=== PATIENT | male | born 1940 | race Caucasian/White ===

== ENCOUNTER 2019-04-23 16:16 | Inpatient (IN) ==
--- OUTSIDE RECORDS SUMMARY | 2019-04-23 16:19 | External Medical Summary | Continuity of Care Document ---
:1940 Author Name Clarence M.D. Address Unavailable Unavailable , Care Team Providers Name Role Phone Unavailable Unavailable Unavailable Brandon ROBERTO Unavailable Unavailable Unavailable Unavailable Unavailable Problems Arthritis (716.90) (M19.90) Tachycardia (785.0) (R00.0) Hypertension (401.9) (I10) Type 2 diabetes mellitus (250.00) (E11.9) Allergies and Adverse Reactions No Known Drug Allergies (Allergy) Medications Vitamin D3 1000 UNIT Oral Capsule; TAKE 1 CAPSULE Daily , M. D. Refills: 0 metFORMIN HCl - 1000 MG Oral Tablet; TAKE 1 TABLET TWICE KYM LY. , M.D. Quantity: 180 Refills: 3 Lisinopril 10 MG Oral Tablet; TAKE 1 TABLET DAILY. , M.D. Quantity: 90 Refills: 0 Arthritis Pain Reliever 650 MG Oral Tabl et Extended Release; TAKE 1 TABLET Daily PRN pain , M.D. Refills: 0 Atorvastatin Calcium 10 MG Oral Tablet , M.D. Refills: 0 Aspirin 81 MG TABS; TAKE 1 TABLET DAILY. , M.D. Refills: 0 Sotalol HCl - 80 MG Oral Tablet; TAKE 1 TABLET TWICE DAILY. , M.D. Refills: 0 Procedures Procedures not documented Immunizations Immunizations not documented Social History - Smoking Status Never smoker Plan of Treatment Planned Observations Planned Goals not documented Results No Known Results Results not documented
[2019-04-23] MEDS ORDERED: ONDANSETRON INJ 2 MG/ML 2 ML VIAL IV STA ×2 (16:28→17:29)
[2019-04-23] MEDS ORDERED: MoRPHine SULFATE 4 MG/ML 1 ML CARP\\VIAL IV STA ×2 (16:28→17:57)
[2019-04-23] MEDS ORDERED: SODIUM CHLORIDE 0.9% 1000ML 1,000 ML IV SCH (16:30)
[2019-04-23 17:07] LABS: Basophils # (auto) 0.02 K/uL (0-0.2); Basophils % (auto) 0.2 %; Eosinophils # (auto) 0.04 K/uL (0-0.5); Eosinophils % (auto) 0.4 %; Hematocrit (blood only) 45.4 % (42-52); Hemoglobin 15.5 g/dL (14.0-18.0); Immature Granulocytes # (auto) 0.02 K/uL (0.00-0.02); Immature Granulocytes % (auto) 0.2 %; Lymphocytes # (auto) 1.35 K/uL (1.2-3.4); Lymphocytes % (auto) 13.2 %; Mean Corpuscular Hemoglobin 32.5 pg (25-34); Mean Corpuscular Hgb Conc 34.1 g/dL (32-36); Mean Corpuscular Volume 95.2 fL (80-100); Mean Platelet Volume 10.8 fL (7.4-10.4); Monocytes # (auto) 0.31 K/uL (0.11-0.59); Neutrophils # (auto) 8.52 K/uL (1.4-6.5); Platelet Count 106 K/uL (130-400); RDW Coefficient of Variation 13.9 % (11.5-14.5); RDW Standard Deviation 48.5 fL (36.4-46.3); Red Blood Count 4.77 M/uL (4.7-6.1); White Blood Count 10.26 K/uL (4.8-10.8)
[2019-04-23 17:31] LABS: Albumin Level 3.8 gm/dl (3.4-5.0); BUN Creatinine Ratio 18.5 (10-20); Calcium 8.9 mg/dl (8.5-10.1); Creatinine Clr Calc Pharmacy 44.1 ml/min; Est GFR (African American) 48.2; Est GFR (Non-African American) 41.6; Potassium 4.6 mmol/L (3.5-5.1)
[2019-04-23 17:34] LABS: Albumin Globulin Ratio 1.4 (0.9-2); Globulin 2.8 gm/dl (2.5-4.0); Total Protein 6.6 gm/dl (6.4-8.2)
[2019-04-23] MEDS ORDERED: IOVERSOL 100ml IV PRN (17:54)
--- NOTE | 2019-04-23 18:15 | CT Scan Report ---
ABDOMEN AND PELVIS CT WITH IV CONTRAST CT DOSE: 878.29 mGy.cm HISTORY: periumbilical abd pain TECHNIQUE: Multiaxial CT images of the abdomen and pelvis were performed following the use of intrave nous contrast. A dose lowering technique was utilized adhering to the principles of ALARA. COMPARISON STUDY: None. FINDINGS: Groundglass densities at the lung bases posteriorly favor mild dependent change. No pneumop eritoneum. No pneumatosis. Sclerosis at the femoral heads. This is nonspecific but could be due to de generative change or early avascular necrosis. No femoral head collapse. No acute fractures. A few sc attered punctate calcifications within the pancreas. There is mild to moderate peripancreatic inflamm atory change and fluid. Findings are consistent with acute pancreatitis. No loculated fluid collectio ns identified at this time. The pancreas enhances normally. No significant pancreatic necrosis identi fied. The splenic artery and vein appear patent. The main portal vein is also patent. Normal caliber common bile duct. Cholecystectomy. The liver, spleen, adrenal glands are unremarkable. Bilateral antonella l hypodense lesions are noted. Dominant lesion within the left kidney measures 8.4 cm. Some of these are subcentimeter in size are technically too small to characterize. However, these statistically fav or cysts. No hydronephrosis. Focal aneurysmal dilatation of the celiac artery measuring up to 1.6 cm in diameter. Small fat-containing right inguinal hernia. No retroperitoneal lymphadenopathy. Normal c aliber abdominal aorta. No pelvic free fluid. The prostate gland is mildly enlarged. The bladder is u nremarkable. Colonic diverticulosis. No evidence for diverticulitis. No bowel wall thickening or obst ruction. Normal appendix. IMPRESSION: 1. Above findings consistent with acute pancreatitis. 2. Nonspecific sclerosis of the femoral head. This could be due to degenerative change or developing avascular necrosis. No femoral head collapse. 3. 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 4. Additional findings as described above. Electronically signed by: Janes Amaya M.D. 04/23/2019 6:13 PM
--- NOTE | 2019-04-23 18:44 | History & Physical Report ---
Date of Service April 23, 2019 Assessment & Plan (1) Acute pancreatitis: This is a 78yo M with a PMH of DM II, HTN, HLD, paroxysmal VT, GERD and other medical problems listed below who presents with abdominal pain since early afternoon and was found to have acute pancreatitis. -Developed abdominal pain today with associated nausea, vomiting and diarrhea -No previous history of pancreatitis. Status post cholecystectomy, no alcohol or tobacco use -Found to have acute pancreatitis on CT abdomen pelvis. Lipase 19,854 -LR @ 150 ml/hr, pain control, n.p.o. for now -Holding Victoza,atorvastatin, hctz as potential contributors -Fasting lipid panel in AM -Routine GI consult (2) Paroxysmal ventricular tachycardia: Controlled on sotalol, still having asymptomatic PVCs -[place] [facility] [place]Continue sotalol (3) Hypertension: Mildly elevated in setting of pain -Continue metoprolol, lisinopril -Holding HCTZ (4) Diabetes mellitus, type II: A1c of 7.6 in February 2019 -Hold home agents, including Victoza -SSI while in-patient -BSG Q6H while NPO (5) CKD (chronic kidney disease), stage III: Creatinine 1.56, upper limit of normal (baseline creatinine mid ones) -Holding hydrochlorothiazide -Monitor with daily BMP DVT Ppx: SQ heparin Code status: FULL PCP: [facility] Dispo: Admitted to med/surg tele. Plan to return home once medically stable Patient seen in collaboration with Dr. Judd. Please see addendum. History of Present Illness Chief Complaint: abd pain Primary Care Provider: Milton Pugh MD This is a 78yo M with a PMH of DM II, HTN, HLD, paroxysmal VT, GERD and other medical problems listed below who presents with abdominal pain since early afternoon. [place] normal today until 30 minutes after eating 4 spicy beef sticks and pepper mathew cheese. Describes pain as a constant, 10/10 sharp and non- radiating. Had associated nausea and vomiting x 3. Also had a few episodes of diarrhea. Denies fever chills, cough, chest pain, shortness of breath, dysuria or constipation. In ED, pain decreased to 2/10 after pain medication in ED. Has been taking Victoza for approximately 1 year. Only new medications are magnesium and B12. Does not drink alcohol or use tobacco. History of cholecystectomy. Found to have acute pancreatitis on CT abd/pelvis. Lipase 19, 854. Will admit for treatment of acute pancreatitis. Allergies Allergy/AdvReac Type Severity Reaction Status Date / Time No Known Allergies Allergy Verified 04/23/19 17:34 Home Medications Home Medications Medication Instructions Recorded Confirmed Type acetaminophen [Tylenol Extra 1,000 mg PO QID PRN 04/23/19 04/23/19 History Strength] allopurinol [Zyloprim] 300 mg PO QPM 04/23/19 04/23/19 History aspirin [Aspir-Low] 81 mg PO DAILY 04/23/19 04/23/19 History atorvastatin [Lipitor] 10 mg PO QPM 04/23/19 04/23/19 History cholecalciferol (vitamin D3) 1,000 unit PO DAILY 04/23/19 04/23/19 History [Vitamin D3] cyanocobalamin (vitamin B-12) 1,000 mcg PO DAILY 04/23/19 04/23/19 History [Vitamin B-12] fluticasone propionate [Flonase 2 spray INTRANASAL DAILY PRN 04/23/19 04/23/19 History Allergy Relief] hydrochlorothiazide 12.5 mg PO DAILY 04/23/19 04/23/19 History liraglutide [Victoza 3-Emeterio] 1.2 mg SUBCUT DAILY 04/23/19 04/23/19 History lisinopril 20 mg PO DAILY 04/23/19 04/23/19 History magnesium oxide 400 mg PO DAILY 04/23/19 04/23/19 History metformin [Glucophage] 500 mg PO BIDM 04/23/19 04/23/19 History metoprolol succinate [Toprol XL] 25 mg PO DAILY 04/23/19 04/23/19 History sotalol [Betapace] 80 mg PO BID 04/23/19 04/23/19 History Past Med/Surg History Medical History CKD (chronic kidney disease), stage III (Chronic) Diabetes mellitus, type II (Chronic) Paroxysmal ventricular tachycardia (Chronic) HLD (hyperlipidemia) (Chronic) Surgical History History of cholecystectomy (Chronic) History of knee surgery (Chronic) Family History Other Abdominal aneurysm Social History Current Living Situation: Spouse Feels Safe at Home: Yes Smoking Status: Never smoker Hx Alcohol Use: No Hx Substance Use: No Review of Systems Review of Systems: At least ten systems reviewed and negative except as noted in the HPI. Physical Exam Physical Exam: General Appearance: WD/WN, vitals as above, NAD, sitting up in bed, pleasant, conversing easily Head: normocephalic, atraumatic Eyes: normal inspection, PERRL, conjunctivae normal, anicteric sclerae ENT: external ear and nose normal, oropharynx normal Neck: trachea midline, no thyromegaly normal visual inspection Respiratory: Decreased breath sounds, no wheeze, rales, rhonchi. Normal insp/exp effort, no accessory muscle use Cardiovascular: regular rate, rhythm, no murmur, normal peripheral pulses. Vessels: no JVD or carotid bruit Chest: normal inspection of chest Abdomen/GI: normal bowel sounds, soft, TTP in RUQ, mid-epigastrium, voluntarily guarding, no hepatosplenomegaly Extremities/Musculoskelatal: no cyanosis or clubbing, extremities motor strength 5/5 Neurologic: PERRL, EOMI, accommodation nl, no face palsy, no dysarthria CN's II-XI intact bilaterally and moves all extremities Psychiatric: A+Ox3, euthymic affect Skin: no rashes, normal color, warm/dry Results & Data Vital Signs (Past 12 Hours) Vital Signs Temp Pulse Resp BP Pulse Ox 04/23/19 18:08 98 04/23/19 18:07 141/100 H 98 04/23/19 17:34 16 160/98 H 99 04/23/19 16:39 95 04/23/19 16:38 71 13 97 04/23/19 16:22 36.8 C 17 136/84 98 04/23/19 16:21 65 13 136/84 97 Laboratory Results Short CBC 04/23/19 Range/Units 16:51 WBC 10.26 (4.8-10.8) K/uL Hgb 15.5 (14.0-18.0) g/dL Hct 45.4 (42-52) % Plt Count 106 L (130-400) K/uL BMP 04/23/19 16:51 Sodium 138 Potassium 4.6 Chloride 105 Carbon Dioxide 26 BUN 29 H Creatinine 1.56 H Glucose 180 H Calcium 8.9 Liver Function 04/23/19 Range/Units 16:51 Total Bilirubin 1.0 (0.2-1) mg/dl AST 22 (15-37) U/L ALT 31 (12-78) U/L Alkaline Phosphatase 75 (45-117) U/L Albumin 3.8 (3.4-5.0) gm/dl Diagnostic Findings CT abd/pelvis: IMPRESSION: 1. Above findings consistent with acute pancreatitis. 2. Nonspecific sclerosis of the femoral head. This could be due to degenerative change or developing avascular necrosis. No femoral head collapse. 3. 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 4. Additional findings as described above. Supervising Physician Co-Signing Physician Notes Patient is a 78-year-old male with history of diabetes, hypertension, paroxysmal ventricular tachycardia and other problems presents with history of abdominal pain, nausea and vomiting, transient diarrhea which started this morning. Abdominal pain started after eating spicy beef sticks and pepper [place] cheese. He denies any prior history of pancreatitis. He is on Victoza for diabetes which he has been taking since last 1 year. Patient is also on hydrochlorothiazide and Lipitor. Denies any recent medication changes other than being started on magnesium oxide and vitamin B12. He denies any alcohol use. Lipase levels are elevated at 19,858. CT abdomen is suggestive of acute pancreatitis. Also noted 1.6 cm celiac artery aneurysm. On exam patient is moderately built and nourished, no apparent distress, normocephalic atraumatic, lungs are clear to auscultation, S1-S2, no murmur, abdomen soft, tender upper quadrant predominantly right upper quadrant and epigastric region, voluntary guarding, bowel sounds are present, no pedal edema, grossly no focal neurological deficits. Patient is admitted for management of acute pancreatitis. We will keep him n.p.o., start on IV fluids, hold statin, hydrochlorothiazide and Victoza. Consulted GI for further input. Check lipid panel. I personally reviewed the record. Patient is interviewed and examined at bedside. Patient's care is coordinated with Kathia Lawson PA-C. Please refer to the documentation above for details of patient's presentation and for discussion of other issues.
[2019-04-23] MEDS ORDERED: FLUTICASONE PROPIONATE NA SPR 16 GM BTL NAE PRN (19:14)
[2019-04-23] MEDS ORDERED: GLUCOSE 40% GEL 15 GM TUBE PO PRN (19:27)
[2019-04-23] MEDS ORDERED: ONDANSETRON INJ 2 MG/ML 2 ML VIAL IV PRN (19:27)
[2019-04-23] MEDS ORDERED: MoRPHine SULFATE 2 MG/ML CARP IV PRN (19:27)
[2019-04-23] MEDS ORDERED: DEXTROSE 50% 50 ML SYRINGE IV PRN (19:27)
[2019-04-23] MEDS ORDERED: CARBOHYDRATES FOR HYPOGLYCEMIA PO PRN (19:27)
[2019-04-23] MEDS ORDERED: GLUCOSE 10 TABS/TUBE PO PRN (19:27)
[2019-04-23] MEDS ORDERED: GLUCAGON FOR INJ 1 MG VIAL SQ PRN (19:27)
--- NOTE | 2019-04-23 20:15 | Emergency Department Note ---
Entered by Rick Aguirre acting as a scribe for Hector Cha DO History of Present Illness General Chief complaint: Abdominal Pain Source: patient History of Present Illness Onset (ago): hour(s) (5.5) Location: abdomen (lower) Severity: moderate Pain Consistency: + constant Maximum Pain Intensity: 3 Associated symptoms: + denies other symptoms (pain and blood in his urine, cough, runny nose, and testicular pain), + cough, + nausea/vomiting and + other (diarrhea); no rash The patient is a 78 y/o male w/ PMHx of DMII, HLD, HTN who presents to the ED w/ CC of constant, lower, moderate abdominal pain beginning 5.5 hours ago. The patient states he was eating pepper cheese and bologna this morning when his symptoms began. He reports he has had this meal several times before, but this time he developed abdominal pain, became nauseous, vomited three times. The patient notes he also developed diarrhea. He states his diarrhea and nausea have resolved with the medication he was given by EMS. The patient reports his pain is still there, and he has a history of a cholecystectomy. He denies pain and blood in his urine, cough, runny nose, rashes, and testicular pain. EMS notes the patient was given 100mcg of Fentanyl and 4mg of Zofran in route. Home Medications Home Medications Medication Instructions Recorded Confirmed Type acetaminophen [Tylenol Extra 1,000 mg PO QID PRN 04/23/19 04/23/19 History Strength] allopurinol [Zyloprim] 300 mg PO QPM 04/23/19 04/23/19 History aspirin [Aspir-Low] 81 mg PO DAILY 04/23/19 04/23/19 History atorvastatin [Lipitor] 10 mg PO QPM 04/23/19 04/23/19 History cholecalciferol (vitamin D3) 1,000 unit PO DAILY 04/23/19 04/23/19 History [Vitamin D3] cyanocobalamin (vitamin B-12) 1,000 mcg PO DAILY 04/23/19 04/23/19 History [Vitamin B-12] fluticasone propionate [Flonase 2 spray INTRANASAL DAILY PRN 04/23/19 04/23/19 History Allergy Relief] hydrochlorothiazide 12.5 mg PO DAILY 04/23/19 04/23/19 History liraglutide [Victoza 3-Emeterio] 1.2 mg SUBCUT DAILY 04/23/19 04/23/19 History lisinopril 20 mg PO DAILY 04/23/19 04/23/19 History magnesium oxide 400 mg PO DAILY 04/23/19 04/23/19 History metformin [Glucophage] 500 mg PO BIDM 04/23/19 04/23/19 History metoprolol succinate [Toprol XL] 25 mg PO DAILY 04/23/19 04/23/19 History sotalol [Betapace] 80 mg PO BID 04/23/19 04/23/19 History Allergies Allergy/AdvReac Type Severity Reaction Status Date / Time No Known Allergies Allergy Verified 04/23/19 17:34 Past Med/Surg History Medical History CKD (chronic kidney disease), stage III (Chronic) Diabetes mellitus, type II (Chronic) Paroxysmal ventricular tachycardia (Chronic) HLD (hyperlipidemia) (Chronic) Surgical History History of cholecystectomy (Chronic) History of knee surgery (Chronic) Family History Other Abdominal aneurysm Social History Preferred Language: Bulgarian Communication Ability: Effective On Air Talent Required: No Beliefs That Will Affect Care: None Current Living Situation: Spouse Other Information That Helps Us Care for You: No Feels Safe at Home: Yes Safety Concerns: Feels Safe At This Time Smoking Status: Never smoker Do You Dip or Chew Tobacco: No ; Second Hand Exposure: Yes ; Hx Alcohol Use: No Hx Substance Use: No Review of Systems See HPI for pertinent positives & negatives. and A total of 10 systems reviewed and were otherwise negative Physical Exam Vital Signs Vital Signs - 24 hr 04/23/19 16:21 04/23/19 16:22 04/23/19 16:38 Temperature 36.8 C Temperature Source Oral Sepsis Recent Fever Within 48 Hours No Sepsis Action Taken by Nursing No Action Required Pulse Rate 65 71 Pulse Rate from SpO2 Sensor 60 67 Respiratory Rate 13 17 13 Blood Pressure 136/84 136/84 Blood Pressure Mean 101 101 Pulse Oximetry 97 98 97 Oxygen Delivery Method Room Air Room Air Room Air 04/23/19 16:39 04/23/19 17:34 04/23/19 18:07 Temperature Temperature Source Sepsis Recent Fever Within 48 Hours Sepsis Action Taken by Nursing Pulse Rate Pulse Rate from SpO2 Sensor 71 78 Respiratory Rate 16 Blood Pressure 160/98 H 141/100 H Blood Pressure Mean 118 113 Pulse Oximetry 95 99 98 Oxygen Delivery Method Room Air Room Air 04/23/19 18:08 04/23/19 18:30 04/23/19 18:31 Temperature Temperature Source Sepsis Recent Fever Within 48 Hours Sepsis Action Taken by Nursing Pulse Rate Pulse Rate from SpO2 Sensor 73 79 68 Respiratory Rate 18 Blood Pressure 112/73 Blood Pressure Mean 86 Pulse Oximetry 98 92 96 Oxygen Delivery Method Room Air Room Air GENERAL: Sitting up in bed. Disheveled holding his lower abdomen. EYE EXAM: normal conjunctiva OROPHARYNX: no exudate, no erythema, lips, buccal mucosa, and tongue normal and mucous membranes are moist NECK: supple, no nuchal rigidity, no adenopathy, non-tender LUNGS: Clear to auscultation. Normal chest wall mechanics HEART: no murmurs, S1 normal and S2 normal ABDOMEN: abdomen soft, tenderness around the umbilicus upon palpation, normo- active bowel sounds, no masses, no rebound or guarding. BACK: Back is symmetrical on inspection and there is no deformity, no midline tenderness, no CVA tenderness. SKIN: no rashes and no bruising UPPER EXTREMITIES: upper extremities are grossly normal. LOWER EXTREMITIES: No pitting edema. NEURO EXAM: Normal sensorium, cranial nerves II-XII grossly intact, normal speech, no gross weakness of arms, no gross weakness of legs. Course ED COURSE: Vital signs were reviewed and showed HTN. The patients medical record was reviewed The above diagnostic studies were performed and reviewed. ED treatments and interventions as stated above. 1620: The patient was evaluated in room C02B. A complete history and physical examination was performed. 1824: I reviewed the patient's case with Kathia Lawson PA-C, [facility] Hospitalist, Dr. Jean-Baptiste. She will evaluate the patient for further management. 1826: Upon reevaluation, the patient is resting.I discussed my findings with the patient and he understands and agrees with the treatment plan. Based on the patients age, coexisting illnesses, exam and lab findings the decision to treat as an inpatient was made. The patient remained stable while under my care. The patient will be evaluated for further management. Administered Medications Discontinued Medications Sodium Chloride (Nss 1000ml) 1,000 mls @ 999 mls/hr IV .Q1H1M KHOA Stop: 04/23/19 17:30 Last Infusion: 04/23/19 17:39 Dose: 0 mls/hr Documented by: [id number] Admin: 04/23/19 16:38 Dose: 999 mls/hr Documented by: [id number] Ioversol (Optiray 320 100ml) 93 ml IV ONCE PRN PRN Reason: Interaction Checking Stop: 04/27/19 17:53 Last Admin: 04/23/19 17:55 Dose: 93 ml Documented by: [id number] Morphine Sulfate (Morphine Sulfate) 4 mg IV NOW STA Stop: 04/23/19 16:29 Last Admin: 04/23/19 16:38 Dose: 4 mg Documented by: [id number] Morphine Sulfate (Morphine Sulfate) 4 mg IV NOW STA Stop: 04/23/19 17:58 Last Admin: 04/23/19 18:07 Dose: 4 mg Documented by: [id number] Ondansetron HCl (Zofran) 4 mg IV NOW STA Stop: 04/23/19 16:29 Last Admin: 04/23/19 16:39 Dose: 4 mg Documented by: [id number] Ondansetron HCl (Zofran) 4 mg IV NOW STA Stop: 04/23/19 17:30 Last Admin: 04/23/19 17:35 Dose: 4 mg Documented by: [id number] Medical Decision Making Differential Diagnosis Differential diagnoses includes but is not limited to gastritis, peptic ulcer disease, GERD, gallbladder disease, pancreatitis, small bowel obstruction, acute coronary syndrome, pericarditis, ischemic bowel, irritable bowel disease, irritable bowel syndrome, appendicitis, diverticulitis, malignancy, hernia, urinary tract infection, torsion, perforation, trauma, infectious. Medical Records Attestation: I reviewed the patient's medical records. Home Medications Current Medication List: was personally reviewed by me Laboratory Data Attestation: I reviewed the patient's lab results. Result diagrams: 04/23/19 16:51 04/23/19 16:51 Lab Results 04/23/19 04/23/19 Range/Units 16:51 16:51 WBC 10.26 (4.8-10.8) K/uL RBC 4.77 (4.7-6.1) M/uL Hgb 15.5 (14.0-18.0) g/dL Hct 45.4 (42-52) % MCV 95.2 (80-100) fL MCH 32.5 (25-34) pg MCHC 34.1 (32-36) g/dL RDW Std Deviation 48.5 H (36.4-46.3) fL RDW Coeff of Mona 13.9 (11.5-14.5) % Plt Count 106 L (130-400) K/uL MPV 10.8 H (7.4-10.4) fL Immature Gran % (Auto) 0.2 % Neut % (Auto) 83.0 % Lymph % (Auto) 13.2 % Pitkin % (Auto) 3.0 % Eos % (Auto) 0.4 % Baso % (Auto) 0.2 % Immature Gran # (Auto) 0.02 (0.00-0.02) K/uL Neut # (Auto) 8.52 H (1.4-6.5) K/uL Lymph # (Auto) 1.35 (1.2-3.4) K/uL Pitkin # (Auto) 0.31 (0.11-0.59) K/uL Eos # (Auto) 0.04 (0-0.5) K/uL Baso # (Auto) 0.02 (0-0.2) K/uL Sodium 138 (136-145) mmol/L Potassium 4.6 (3.5-5.1) mmol/L Chloride 105 (98-107) mmol/L Carbon Dioxide 26 (21-32) mmol/L Anion Gap 7.0 (3-11) BUN 29 H (7-18) mg/dl Creatinine 1.56 H (0.6-1.4) mg/dl Est Cr Clr Drug Dosing 44.1 ml/min Est GFR ( Amer) 48.2 Est GFR (Non-Af Amer) 41.6 BUN/Creatinine Ratio 18.5 (10-20) Glucose 180 H (70-99) mg/dl Calcium 8.9 (8.5-10.1) mg/dl Total Bilirubin 1.0 (0.2-1) mg/dl AST 22 (15-37) U/L ALT 31 (12-78) U/L Alkaline Phosphatase 75 (45-117) U/L Total Protein 6.6 (6.4-8.2) gm/dl Albumin 3.8 (3.4-5.0) gm/dl Globulin 2.8 (2.5-4.0) gm/dl Albumin/Globulin Ratio 1.4 (0.9-2) Lipase 45720 H (73-393) U/L Imaging Data Radiologist's Impression: Radiology results as stated below per my review and the radiologist's interpretation: ABDOMEN AND PELVIS CT WITH IV CONTRAST CT DOSE: 878.29 mGy.cm HISTORY: periumbilical abd pain TECHNIQUE: Multiaxial CT images of the abdomen and pelvis were performed following the use of intravenous contrast. A dose lowering technique was utilized adhering to the principles of ALARA. COMPARISON STUDY: None. FINDINGS: Groundglass densities at the lung bases posteriorly favor mild dependent change. No pneumoperitoneum. No pneumatosis. Sclerosis at the femoral heads. This is nonspecific but could be due to degenerative change or early avascular necrosis. No femoral head collapse. No acute fractures. A few scat tered punctate calcifications within the pancreas. There is mild to moderate peripancreatic inflammatory change and fluid. Findings are consistent with acute pancreatitis. No loculated fluid collections identified at this time. The pancreas enhances normally. No significant pancreatic necrosis identified. The splenic artery and vein appear patent. The main portal vein is also patent. Normal caliber common bile duct. Cholecystectomy. The liver, spleen, adrenal glands are unremarkable. Bilateral renal hypodense lesions are noted. Dominant lesion within the left kidney measures 8.4 cm. Some of these are subcentimeter in size are technically too small to characterize. However, these statistically favor cysts. No hydronephrosis. Focal aneurysmal dilatation of the celiac artery measuring up to 1.6 cm in diameter. Small fat-containing right inguinal hernia. No retroperitoneal lymphadenopathy. Normal caliber abdominal aorta. No pelvic free fluid. The prostate gland is mildly enlarged. The bladder is unremarkable. Colonic diverticulosis. No evidence for diverticulitis. No bowel wall thickening or obstruction. Normal appendix. IMPRESSION: 1. Above findings consistent with acute pancreatitis. 2. Nonspecific sclerosis of the femoral head. This could be due to degenerative change or developing avascular necrosis. No femoral head collapse. 3. 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 4. Additional findings as described above. Electronically signed by: Janes Amaya M.D. 04/23/2019 6:13 PM ECG Data Attestation: I personally reviewed and interpreted this ECG as follows: Indication: abdominal pain Rate (beats per minute): 67 Rhythm: sinus rhythm Findings: + 1st degree AV block, + PVC and + left axis deviation Blood Pressure Blood Pressure Findings: Elevated blood pressure Blood Pressure Disposition: further management by hospitalist PIYUSH Narrative Patient is a 78-year-old male who presents the ER for periumbilical abdominal pain which she describes as severe associate with nausea vomiting. He was given IV fentanyl prior to arrival. IV was established blood work was obtained showed no significant leukocytosis or anemia. BMP with a creatinine 1.56. LFTs bilirubin was unremarkable. Lipase was significantly elevated at 20,000. CT abdomen pelvis confirms acute pancreatitis. He was given IV fluids IV Zofran and IV narcotics. He has significant improvement of his symptoms. He was updated bedside as well as his family. He denies any alcohol abuse. Previous cholecystectomy. He was admitted to the hospital for acute pancreatitis. Impression & Plan Pancreatitis, Abdominal pain, Nausea & vomiting Discharge Plan Visit Data *Final* Discharge Date/Time: 04/23/19 19:05 Chief Complaint: Abdominal Pain ED Provider: Hector Cha Discharge Problem: Pancreatitis, Abdominal pain, Nausea & vomiting Patient Disposition: Admitted As Inpatient Discharge Instructions Interventions: ED Discharge Assessment Last Done: 04/23/19 19:05 The scribe's documentation has been prepared under my direction and personally reviewed by me in its entirety. I confirm that the note above accurately reflects all work, treatment, procedures, and medical decision making performed by me.
[2019-04-23] MEDS: LACTATED RINGER'S 1,000 ML IV SCH (20:32)
[2019-04-23] MEDS: FAMOTIDINE 20 MG in SYRINGE 3 ML IV SCH (20:33)
[2019-04-23] MEDS ORDERED: ALLOPURINOL 300 MG TAB PO SCH (21:00)
[2019-04-23] MEDS ORDERED: INSULIN ASPART 100 UNITS/ML 3 ML PEN SC SCH (21:00)
[2019-04-23] MEDS: SOTALOL HCL 80 MG TAB PO SCH (21:33)
[2019-04-23] MEDS: INSULIN ASPART 100 UNITS/ML 3 ML PEN SC SCH (21:37)
[2019-04-23] MEDS: HEPARIN SOD 5,000 UNIT/0.5 ML VIAL SQ SCH (21:38)
[2019-04-24] MEDS: MoRPHine SULFATE 2 MG/ML CARP IV PRN ×7 (01:38→23:54)
[2019-04-24] MEDS: INSULIN ASPART 100 UNITS/ML 3 ML PEN SC SCH ×4 (01:39→18:21)
[2019-04-24] MEDS: LACTATED RINGER'S 1,000 ML IV SCH ×4 (03:15→21:32)
[2019-04-24 05:11] LABS: Hematocrit (blood only) 48.2 % (42-52); Hemoglobin 16.5 g/dL (14.0-18.0); Mean Corpuscular Hemoglobin 32.6 pg (25-34); Mean Corpuscular Hgb Conc 34.2 g/dL (32-36); Mean Corpuscular Volume 95.3 fL (80-100); Mean Platelet Volume 10.7 fL (7.4-10.4); Platelet Count 104 K/uL (130-400); RDW Coefficient of Variation 14.2 % (11.5-14.5); RDW Standard Deviation 49.1 fL (36.4-46.3); Red Blood Count 5.06 M/uL (4.7-6.1); White Blood Count 13.84 K/uL (4.8-10.8)
[2019-04-24 05:28] LABS: Appearance Urine Clear (Clear); Bilirubin Urine Negative (Negative); Blood Urine Negative (Negative); Color Urine Yellow; Glucose Urine UA Negative (Negative); Ketones Urine Trace (Negative); Leukocyte Esterase Urine Negative (Negative); Nitrite Urine Negative (Negative); Protein Urine Negative (Negative); Specific Gravity Urine > 1.045 (1.000-1.030); Urobilinogen Urine Negative (Negative)
[2019-04-24 05:38] LABS: Albumin Level 3.6 gm/dl (3.4-5.0); BUN Creatinine Ratio 19.8 (10-20); Calcium 8.4 mg/dl (8.5-10.1); Est GFR (African American) 51.8; Est GFR (Non-African American) 44.7; Potassium 4.5 mmol/L (3.5-5.1)
[2019-04-24 05:41] LABS: Albumin Globulin Ratio 1.2 (0.9-2); Bilirubin,Total 1.3 mg/dl (0.2-1); Globulin 3.1 gm/dl (2.5-4.0); Total Protein 6.7 gm/dl (6.4-8.2)
[2019-04-24] MEDS: HEPARIN SOD 5,000 UNIT/0.5 ML VIAL SQ SCH (05:55)
[2019-04-24] MEDS: FAMOTIDINE 20 MG in SYRINGE 3 ML IV SCH ×2 (07:47→20:26)
[2019-04-24] MEDS: LISINOPRIL 20 MG TAB PO SCH (07:47)
[2019-04-24] MEDS: METOPROLOL SUCC 25MG EXT REL TAB PO SCH (07:47)
[2019-04-24] MEDS: ASPIRIN 81 MG ECTAB PO SCH (07:47)
[2019-04-24] MEDS: SOTALOL HCL 80 MG TAB PO SCH ×2 (07:47→20:29)
[2019-04-24] MEDS: CYANOCOBALAMIN 500 MCG TABLET (VITAMIN B-12) PO SCH (07:48)
--- NOTE | 2019-04-24 07:56 | Gastrointestinal Consultation ---
Date of Consultation April 24, 2019 Assessment & Plan (1) Acute pancreatitis: 1. Increase LR to 200 - 250/hr to affect a 2 point drop in Hb which will verify adequate hydration for tx of acute pancreatitis. 2. Water/chips po only for now. If continues to improve through the day, could a dd clear liquids po this evening or tomorrow morning, then advance diet slowly as tolerated to low fat diet. 3. Recommend stopping Victoza and managing DM with other type medication if possible. 4. Continue stopping hydrochlorothiazide and managing HTN with out medication. 5. EUS in [address] Disla. Order placed in [employer]. Our office will contact him to arrange. 6. At this time because normal LFTs and normal bile ducts on CT, no indication for ERCP or MRCP. 7. Continue to follow CBC, CMP, lipase daily. Present on Admission?: Yes Supervising Physician Co-Signing Physician Notes I saw and evaluated the patient. We are consulted for evaluation of acute pancreatitis. The patient notes that he had some sudden onset of pain after which time he presented to the emergency room. He was found to have lab evidence of pancreatitis with normal-appearing liver enzymes. Abdominal imaging was negative for evidence of choledocholithiasis. The patient reports that he did have a cholecystectomy performed over 20 years ago. The patient notes his medications include Victoza which was started within this year. Physical examination Mild distress Mild abdominal distention without rebound or peritoneal signs Impression: Patient presents with acute pancreatitis perhaps related to Victoza. At this point in time we would recommend continued IV hydration, pain management and discontinuation of Victoza. Recommendations Continue with IV hydration Clear liquid diet is okay as patient starting to feel better Monitor for evidence of ileus Outpatient upper endoscopy with endoscopic ultrasound in 6 to 8 weeks. Discontinue Victoza, management of diabetes per medicine service History of Present Illness Reason for Consultation: Acute Pancreatitis Requesting Physician: Dr. Mcdermott Attending Physician: Chente Mcdermott MD History of Present Illness Mr. Marcus Springer is a 78 yr old male pt of Dr. Srivastava with a hx of A-fib, CKD, DM-2, cholecystectomy, HTN, hyperlipidemia who presented to the ED yesterday for abdominal pain. GI is consulted for acute pancreatitis. He reports the sudden onset of upper abdomen pain beginning around 11AM, after eating bologna and cheese for breakfast, though he says that he is typically a healthy, low fat eater. Soon after the pain began, he also had nausea, vomiting and diarrhea. He has not had fever, chills, CP, SOB. He denies any hx of increased alcohol intake. His and daughter both verify that he does not drink and has never been a smoker. He is S/P distant cholecystectomy in the . He did start Victoza about a year ago and has been on hydrochlorothiazide for several years. He has never previously experienced pancreatitis or untreated similar pain. Because the pain persisted, he presented to the ED yesterday afternoon. On arrival, CT with acute uncomplicated pancreatitis, normal bile duct post cholecystectomy. Lipase = 19,854 ->7007 today. LFTs were normal and triglycerides were low at 62. Cr 1.5. Hb on arrival 15 ->16. He is seen and examined while resting in bed. He is awake, alert, oriented, able to carry a conversation. He reports that his pain persists but is about 50% improved. Nausea continues but no further vomiting. Allergies Allergy/AdvReac Type Severity Reaction Status Date / Time No Known Allergies Allergy Verified 04/23/19 17:34 Home Medications Home Medications Medication Instructions Recorded Confirmed Type acetaminophen [Tylenol Extra 1,000 mg PO QID PRN 04/23/19 04/23/19 History Strength] allopurinol [Zyloprim] 300 mg PO QPM 04/23/19 04/23/19 History aspirin [Aspir-Low] 81 mg PO DAILY 04/23/19 04/23/19 History atorvastatin [Lipitor] 10 mg PO QPM 04/23/19 04/23/19 History cholecalciferol (vitamin D3) 1,000 unit PO DAILY 04/23/19 04/23/19 History [Vitamin D3] cyanocobalamin (vitamin B-12) 1,000 mcg PO DAILY 04/23/19 04/23/19 History [Vitamin B-12] fluticasone propionate [Flonase 2 spray INTRANASAL DAILY PRN 04/23/19 04/23/19 History Allergy Relief] hydrochlorothiazide 12.5 mg PO DAILY 04/23/19 04/23/19 History liraglutide [Victoza 3-Emeterio] 1.2 mg SUBCUT DAILY 04/23/19 04/23/19 History lisinopril 20 mg PO DAILY 04/23/19 04/23/19 History magnesium oxide 400 mg PO DAILY 04/23/19 04/23/19 History metformin [Glucophage] 500 mg PO BIDM 04/23/19 04/23/19 History metoprolol succinate [Toprol XL] 25 mg PO DAILY 04/23/19 04/23/19 History sotalol [Betapace] 80 mg PO BID 04/23/19 04/23/19 History Patient History Medical History CKD (chronic kidney disease), stage III (Chronic) Diabetes mellitus, type II (Chronic) Paroxysmal ventricular tachycardia (Chronic) HLD (hyperlipidemia) (Chronic) Surgical History History of cholecystectomy (Chronic) History of knee surgery (Chronic) Family History Other Abdominal aneurysm Social History Preferred Language: Samoan Communication Ability: 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 Beliefs That Will Affect Care: None Current Living Situation: Spouse Other Information That Helps Us Care for You: No Feels Safe at Home: Yes Safety Concerns: Feels Safe At This Time Smoking Status: Never smoker Do You Dip or Chew Tobacco: No ; Second Hand Exposure: Yes ; Hx Alcohol Use: No Hx Substance Use: No Review of Systems Review of Systems: ROS: Gen: Denies weakness, fevers, weight loss Eyes: No eye redness, or pain, no recent vision changes Resp: No SOB, no cough Cardio: No palpitations/irregular beats, no chest pain GI: + abdominal pain, + nausea/vomiting : Denies pain on urination Skin: Denies jaundice, itching or new rashes Physical Exam Constitutional: WD/WN, vitals as above Eyes: PERRL, conjunctivae normal, anicteric sclerae ENMT: external ear and nose normal, oropharynx normal Neck: trachea midline, no thyromegaly Respiratory: normal respiratory effort, lungs clear to auscultation Cardiovascular: RRR, no murmur, no edema Gastrointestinal (Abdomen): Inspection/Auscultation: normal bowel sounds (slightly hypoactive, but present) Percussion/Palpation: + abdomen tender (epigastric area) and abdomen soft; no guarding and no abdominal mass Musculoskeletal: no cyanosis or clubbing, extremities motor strength 5/5 Skin: no rashes, warm and dry no jaundice Neurologic: PERRL, EOMI, accommodation nl, no face palsy, no dysarthria Psychiatric: A+Ox3, euthymic affect Lymphatic: no cervical or axillary lymphadenopathy Results & Data Vital Signs (Past 12 Hours) Vital Signs Temp Pulse Resp BP Pulse Ox 04/24/19 07:07 36.6 C 79 18 164/99 H 93 04/23/19 23:00 36.3 C L 73 19 162/97 H 95 04/23/19 21:30 141 H 160/102 H Laboratory Results WBC 13, Hb 16, Lipase [address] abd/pelvis with IV contrast: 1. Above findings consistent with acute pancreatitis. 2. Nonspecific sclerosis of the femoral head. This could be due to degenerative change or developing avascular necrosis. No femoral head collapse. 3. 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 4. Additional findings as described above. Medications Administered LR was running at 150/hr, increased to 200/hr.
[2019-04-24] MEDS ORDERED: NON-FORMULARY MEDICATION (Magnesium Oxide 400 MG) PO SCH (09:00)
[2019-04-24] MEDS ORDERED: CHOLECALCIFEROL 1,000 UNITS TAB PO SCH (09:00)
[2019-04-24] MEDS ORDERED: Nursing to Pharmacy Communication ONE (09:20)
[2019-04-24] MEDS ORDERED: METOCLOPRAMIDE HCL INJ 5 MG/ML 2 ML VIAL IV PRN (12:06)
--- NOTE | 2019-04-24 12:27 | Hospitalist Progress Note ---
Date of Service April 24, 2019 Assessment & Plan (1) Acute pancreatitis: This is a 78yo M with a PMH of DM II, HTN, HLD, paroxysmal VT, GERD and other medical problems listed below who presents with abdominal pain since early afternoon of 04/23/19 and was found to have acute pancreatitis. CT abdomen 04/23/19 "FINDINGS: Groundglass densities at the lung bases posteriorly favor mild dependent change. No pneumoperitoneum. No pneumatosis. Sclerosis at the femoral heads. This is nonspecific but could be due to degenerative change or early avascular necrosis. No femoral head collapse. No acute fractures. A few scattered punctate calcifications within the pancreas. There is mild to moderate peripancreatic inflammatory change and fluid. Findings are consistent with acute pancreatitis. No loculated fluid collections identified at this time. The pancreas enhances normally. No significant pancreatic necrosis identified. The splenic artery and vein appear patent. The main portal vein is also patent. Normal caliber common bile duct. Cholecystectomy. The liver, spleen, adrenal glands are unremarkable. Bilateral renal hypodense lesions are noted. Dominant lesion within the left kidney measures 8.4 cm. Some of these are subcentimeter in size are technically too small to characterize. However, these statistically favor cysts. No hydronephrosis. Focal aneurysmal dilatation of the celiac artery measuring up to 1.6 cm in diameter. Small fat-containing right inguinal hernia. No retroperitoneal lymphadenopathy. Normal caliber abdominal aorta. No pelvic free fluid. The prostate gland is mildly enlarged. The bladder is unremarkable. Colonic diverticulosis. No evidence for diverticulitis. No bowel wall thickening or obstruction. Normal appendix. IMPRESSION: 1. Above findings consistent with acute pancreatitis. 2. Nonspecific sclerosis of the femoral head. This could be due to degenerative change or developing avascular necrosis. No femoral head collapse. 3. 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 4. Additional findings as described above." -No previous history of pancreatitis. Status post cholecystectomy, no alcohol or tobacco use -Found to have acute pancreatitis on CT abdomen pelvis with elevated admission Lipase 19,854 -on IV fluids -Lipase downtrending -Avoid Victoza, HCTZ as potential contributors -Fasting lipid panel in AM shows very well controlled lipid profiles, hold atorvastatin at this time -as per GI: At this time because normal LFTs and normal bile ducts on CT, no indication for ERCP or MRCP. planning for EUS in [address] 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 -incidental CT scan finding; not the cause of current abdomen complaints given pancreatitis with elevated lipase -outpatient follow up and monitoring (2) Paroxysmal ventricular tachycardia: -continue sotalol (3) CKD (chronic kidney disease), stage III: Creatinine 1.56, upper limit of normal (baseline creatinine mid ones) -HCTZ held -Creatinine currently 1.47 -Monitor renal function (4) Hypertension: -Continue metoprolol, lisinopril -gastroenterology advise to avoid HCTZ because of pancreatitis -start amlodipine 10 mg daily (5) Diabetes mellitus, type II: Type 2 diabetes mellitus without residential use of insulin HbA1c of 7.6 in February 2019 -Hold home agents, including Victoza -gastroenterology advise to avoid Victoza because of pancreatitis -Sliding scale insulin while in-patient -check blood sugars every 8 hours while NPO DVT Ppx: SCDs for now to avoid abdominal discomfort from pharmacological injections of anticoagulants Code status: FULL PCP: Keaton [phone] Daughter Meme [phone] Subjective Patient laying in bed on medical sue. no acute distress. no vomiting. tenderness on palpation of abdomen. patient reported last bowel movement was yesterday. he is on IV fluids. he reports no problems with urination. no shortness of breath. no dizziness or lightheadedness. family at bedside with patient and we discussed pancreatitis management and incidental finding of celiac artery aneurysm Physical Exam Constitutional: comfortable Eyes: EOM intact bilaterally ENMT: external ear and nose normal, oropharynx normal Neck: normal visual inspection Respiratory: normal respiratory effort, lungs clear to auscultation Cardiovascular: Rate/Rhythm: regular rate and regular rhythm Gastrointestinal (Abdomen): truncal obesity, abdomen is tender to palpation, bowel sounds present Neurologic: PERRL, EOMI, accommodation nl, no face palsy, no dysarthria Psychiatric: A+Ox3, euthymic affect Results & Data Vital Signs (Past 12 Hours) Vital Signs Temp Pulse Resp BP Pulse Ox 04/24/19 07:07 36.6 C 79 18 164/99 H 93
[2019-04-24] MEDS ORDERED: AMLODIPINE BESYLATE 5 MG TAB PO ONE (12:30)
[2019-04-25] MEDS: INSULIN ASPART 100 UNITS/ML 3 ML PEN SC SCH ×5 (00:03→21:25)
[2019-04-25] MEDS: LACTATED RINGER'S 1,000 ML IV SCH ×4 (02:49→21:30)
[2019-04-25] MEDS: MoRPHine SULFATE 2 MG/ML CARP IV PRN (05:06)
[2019-04-25 05:33] LABS: Hemoglobin 16.5 g/dL (14.0-18.0); Mean Corpuscular Hgb Conc 33.7 g/dL (32-36); RDW Coefficient of Variation 14.5 % (11.5-14.5); RDW Standard Deviation 49.9 fL (36.4-46.3); Red Blood Count 5.16 M/uL (4.7-6.1); White Blood Count 17.62 K/uL (4.8-10.8)
[2019-04-25 05:53] LABS: Albumin Level 2.9 gm/dl (3.4-5.0); BUN Creatinine Ratio 20.2 (10-20); Creatinine Clr Calc Pharmacy 46.4 ml/min; Potassium 4.4 mmol/L (3.5-5.1)
[2019-04-25 05:57] LABS: Globulin 2.9 gm/dl (2.5-4.0); Total Protein 5.8 gm/dl (6.4-8.2)
[2019-04-25 06:06] LABS: Mean Platelet Volume 11.4 fL (7.4-10.4); Platelet Count 86 K/uL (130-400)
[2019-04-25] MEDS ORDERED: MAGNESIUM HYDROXIDE SUSP 30 ML UDC PO ONE (07:39)
--- NOTE | 2019-04-25 07:39 | Hospitalist Progress Note ---
Date of Service April 25, 2019 Assessment & Plan (1) Acute pancreatitis: This is a 78yo M with a PMH of DM II, HTN, HLD, paroxysmal VT, GERD and other medical problems listed below who presents with abdominal pain since early afternoon of 04/23/19 and was found to have acute pancreatitis. CT abdomen 04/23/19 "FINDINGS: Groundglass densities at the lung bases posteriorly favor mild dependent change. No pneumoperitoneum. No pneumatosis. Sclerosis at the femoral heads. This is nonspecific but could be due to degenerative change or early avascular necrosis. No femoral head collapse. No acute fractures. A few scattered punctate calcifications within the pancreas. There is mild to moderate peripancreatic inflammatory change and fluid. Findings are consistent with acute pancreatitis. No loculated fluid collections identified at this time. The pancreas enhances normally. No significant pancreatic necrosis identified. The splenic artery and vein appear patent. The main portal vein is also patent. Normal caliber common bile duct. Cholecystectomy. The liver, spleen, adrenal glands are unremarkable. Bilateral renal hypodense lesions are noted. Dominant lesion within the left kidney measures 8.4 cm. Some of these are subcentimeter in size are technically too small to characterize. However, these statistically favor cysts. No hydronephrosis. Focal aneurysmal dilatation of the celiac artery measuring up to 1.6 cm in diameter. Small fat-containing right inguinal hernia. No retroperitoneal lymphadenopathy. Normal caliber abdominal aorta. No pelvic free fluid. The prostate gland is mildly enlarged. The bladder is unremarkable. Colonic diverticulosis. No evidence for diverticulitis. No bowel wall thickening or obstruction. Normal appendix. IMPRESSION: 1. Above findings consistent with acute pancreatitis. 2. Nonspecific sclerosis of the femoral head. This could be due to degenerative change or developing avascular necrosis. No femoral head collapse. 3. 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 4. Additional findings as described above." -No previous history of pancreatitis. Status post cholecystectomy, no alcohol or tobacco use -Found to have acute pancreatitis on CT abdomen pelvis with elevated admission Lipase 19,854 -on IV fluids -Lipase downtrending to 7007 to 3212 -Avoid Victoza, HCTZ as potential contributors -Fasting lipid panel in AM shows very well controlled lipid profiles, hold atorvastatin at this time -as per GI 04/25/19: At this time because normal LFTs and normal bile ducts on CT, no indication for ERCP or MRCP. planning for EUS in [address] 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 -incidental CT scan finding; not the cause of current abdomen complaints given pancreatitis with elevated lipase -outpatient follow up and monitoring Abdominal pain -from pancreatitis -pain control medications include prn narcotic for moderate to severe pain -bowel regimen to prevent constipation or to prevent ileus (2) Paroxysmal ventricular tachycardia: -continue sotalol (3) CKD (chronic kidney disease), stage III: Creatinine 1.56, upper limit of normal (baseline creatinine mid ones) -HCTZ held -Creatinine currently 1.49 -Monitor renal function (4) Hypertension: -Continue metoprolol, lisinopril -gastroenterology advise to avoid HCTZ because of pancreatitis -continue amlodipine 10 mg daily as substitute (5) Diabetes mellitus, type II: Type 2 diabetes mellitus without terminal clerk use of insulin HbA1c of 7.6 in February 2019 -Hold home agents, including Victoza -gastroenterology advise to avoid Victoza because of pancreatitis -Sliding scale insulin while in-patient and check blood sugar at meal times PT/OT to evaluate ambulation DVT Ppx: SCDs for now to avoid abdominal discomfort from pharmacological injections of anticoagulants Code status: FULL PCP: Keaton [phone] Daughter Meme [phone] Subjective Patient seen and examined at bedside. He reports abdomen pain is more lower towards the lower part of the abdomen. He has not made bowel movements. He feels a little shaky on his feet. denies chest pain. breathing on room air. denies sh ortness of breath. no palpitations. no headache. no dizziness. no vomiting. Physical Exam Constitutional: WD/WN, vitals as above Eyes: EOM intact bilaterally ENMT: external ear and nose normal, oropharynx normal Neck: normal visual inspection Respiratory: normal respiratory effort, lungs clear to auscultation Cardiovascular: Rate/Rhythm: regular rate and regular rhythm Gastrointestinal (Abdomen): abdomen is more soft and less tender today, bowel sounds present Musculoskeletal: Head/Neck/Chest: normocephalic and head atraumatic legs in SCDs Neurologic: PERRL, EOMI, accommodation nl, no face palsy, no dysarthria Psychiatric: A+Ox3, euthymic affect Results & Data Vital Signs (Past 12 Hours) Vital Signs Temp Pulse Resp BP BP Pulse Ox 04/25/19 07:16 36.7 C 91 H 19 119/76 91 04/24/19 23:38 37.3 C 86 20 124/84 93 04/24/19 20:29 85 132/84
[2019-04-25] MEDS ORDERED: HYDROmorphone INJ 0.5 MG/0.5 ML SYR IV PRN (07:48)
[2019-04-25] MEDS: SOTALOL HCL 80 MG TAB PO SCH ×2 (07:52→21:23)
[2019-04-25] MEDS: ASPIRIN 81 MG ECTAB PO SCH (07:53)
[2019-04-25] MEDS: AMLODIPINE BESYLATE 5 MG TAB PO SCH (07:53)
[2019-04-25] MEDS: LISINOPRIL 20 MG TAB PO SCH (07:54)
[2019-04-25] MEDS: CYANOCOBALAMIN 500 MCG TABLET (VITAMIN B-12) PO SCH (07:54)
[2019-04-25] MEDS: METOPROLOL SUCC 25MG EXT REL TAB PO SCH (07:54)
[2019-04-25] MEDS: FAMOTIDINE 20 MG in SYRINGE 3 ML IV SCH ×2 (07:57→21:32)
[2019-04-25] MEDS ORDERED: ACETAMINOPHEN 65 ML IV PRN (08:00)
[2019-04-25] MEDS: SENNA 8.6 MG TAB PO SCH ×2 (08:25→12:15)
[2019-04-25] MEDS ORDERED: Nursing to Pharmacy Communication ONE (09:04)
[2019-04-25] MEDS: OXYCODONE HCL IR 5 MG TAB (IMMEDIATE RELEASE) PO PRN (10:36)
[2019-04-25] MEDS: ACETAMINOPHEN 325 MG TAB PO PRN (15:46)
[2019-04-25] MEDS: POLYETHYLENE (MIRALAX) 17 GM PACK PO PRN (21:39)
[2019-04-26 05:09] LABS: Hematocrit (blood only) 42.9 % (42-52); Hemoglobin 14.5 g/dL (14.0-18.0); Mean Corpuscular Hemoglobin 32.2 pg (25-34); Mean Corpuscular Hgb Conc 33.8 g/dL (32-36); Mean Corpuscular Volume 95.1 fL (80-100); RDW Coefficient of Variation 14.5 % (11.5-14.5); RDW Standard Deviation 49.8 fL (36.4-46.3); Red Blood Count 4.51 M/uL (4.7-6.1); White Blood Count 14.57 K/uL (4.8-10.8)
[2019-04-26] MEDS: LACTATED RINGER'S 1,000 ML IV SCH ×3 (05:09→11:29)
[2019-04-26] MEDS: OXYCODONE HCL IR 5 MG TAB (IMMEDIATE RELEASE) PO PRN ×2 (05:12→15:45)
[2019-04-26 05:35] LABS: Albumin Level 2.6 gm/dl (3.4-5.0); BUN Creatinine Ratio 20.7 (10-20); Calcium 7.9 mg/dl (8.5-10.1); Est GFR (African American) 53.2; Est GFR (Non-African American) 45.9
[2019-04-26 05:38] LABS: Albumin Globulin Ratio 0.8 (0.9-2); Bilirubin,Total 2.3 mg/dl (0.2-1); Globulin 3.1 gm/dl (2.5-4.0); Total Protein 5.7 gm/dl (6.4-8.2)
[2019-04-26 05:43] LABS: Mean Platelet Volume 10.9 fL (7.4-10.4); Platelet Count 71 K/uL (130-400)
[2019-04-26 06:05] LABS: Basophils # (auto) 0.01 K/uL (0-0.2); Basophils % (auto) 0.1 %; Eosinophils # (auto) 0.01 K/uL (0-0.5); Eosinophils % (auto) 0.1 %; Immature Granulocytes # (auto) 0.09 K/uL (0.00-0.02); Immature Granulocytes % (auto) 0.6 %; Lymphocytes # (auto) 1.14 K/uL (1.2-3.4); Lymphocytes % (auto) 7.8 %; Monocytes # (auto) 0.85 K/uL (0.11-0.59); Monocytes % (auto) 5.8 %; Neutrophils # (auto) 12.47 K/uL (1.4-6.5); Neutrophils % (auto) 85.6 %
[2019-04-26] MEDS ORDERED: MAGNESIUM HYDROXIDE SUSP 30 ML UDC PO ONE (07:46)
--- NOTE | 2019-04-26 07:51 | Hospitalist Progress Note ---
Date of Service April 26, 2019 Assessment & Plan (1) Acute pancreatitis: This is a 78yo M with a PMH of DM II, HTN, HLD, paroxysmal VT, GERD and other medical problems listed below who presents with abdominal pain since early afternoon of 04/23/19 and was found to have acute pancreatitis. CT abdomen 04/23/19 "FINDINGS: Groundglass densities at the lung bases posteriorly favor mild dependent change. No pneumoperitoneum. No pneumatosis. Sclerosis at the femoral heads. This is nonspecific but could be due to degenerative change or early avascular necrosis. No femoral head collapse. No acute fractures. A few scattered punctate calcifications within the pancreas. There is mild to moderate peripancreatic inflammatory change and fluid. Findings are consistent with acute pancreatitis. No loculated fluid collections identified at this time. The pancreas enhances normally. No significant pancreatic necrosis identified. The splenic artery and vein appear patent. The main portal vein is also patent. Normal caliber common bile duct. Cholecystectomy. The liver, spleen, adrenal glands are unremarkable. Bilateral renal hypodense lesions are noted. Dominant lesion within the left kidney measures 8.4 cm. Some of these are subcentimeter in size are technically too small to characterize. However, these statistically favor cysts. No hydronephrosis. Focal aneurysmal dilatation of the celiac artery measuring up to 1.6 cm in diameter. Small fat-containing right inguinal hernia. No retroperitoneal lymphadenopathy. Normal caliber abdominal aorta. No pelvic free fluid. The prostate gland is mildly enlarged. The bladder is unremarkable. Colonic diverticulosis. No evidence for diverticulitis. No bowel wall thickening or obstruction. Normal appendix. IMPRESSION: 1. Above findings consistent with acute pancreatitis. 2. Nonspecific sclerosis of the femoral head. This could be due to degenerative change or developing avascular necrosis. No femoral head collapse. 3. 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 4. Additional findings as described above." -No previous history of pancreatitis. Status post cholecystectomy, no alcohol or tobacco use -Found to have acute pancreatitis on CT abdomen pelvis with elevated admission Lipase 19,854 -on IV fluids -Lipase downtrending to 7007 to 3212 to 591 -Avoid Victoza, HCTZ as potential contributors -Fasting lipid panel shows very well controlled lipid profiles, hold atorvastatin at this time -as per GI 04/25/19: At this time because normal LFTs and normal bile ducts on CT, no indication for ERCP or MRCP. planning for EUS in [address] 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 -incidental CT scan finding; not the cause of current abdomen complaints given pancreatitis with elevated lipase -outpatient follow up and monitoring Abdominal pain -from pancreatitis -pain control medications include prn narcotic for moderate to severe pain -bowel regimen to prevent constipation or to prevent ileus (2) Paroxysmal ventricular tachycardia: -continue sotalol (3) CKD (chronic kidney disease), stage III: Creatinine 1.56, upper limit of normal (baseline creatinine mid ones) -HCTZ held -Creatinine currently 1.44 -Monitor renal function (4) Hypertension: -Continue metoprolol, lisinopril -gastroenterology advise to avoid HCTZ because of pancreatitis -continue amlodipine 10 mg daily as substitute Thrombocytopenia -platelets in the stable low 100,000 range and trending to 86K, and now 71 K -recent downtrends may be from hemodilution due to IV fluids for pancreatitis (5) Diabetes mellitus, type II: Diabetes mellitus type II with complication of possible drug contribution of Victoza to pancreatitis HbA1c of 7.6 in February 2019 -Hold home agents, including Victoza -gastroenterology advise to avoid Victoza because of pancreatitis -Sliding scale insulin while in-patient and check blood sugar at meal times PT/OT evaluations requested DVT Ppx: SCDs for now to avoid abdominal discomfort from pharmacological injections of anticoagulants Code status: FULL PCP: Keaton [phone] Daughter Meme [phone] Subjective abdomen is softer on palpation of upper abdomen than lower abdomen, no acute tenderness on palpation, bowel sounds present. patient reports not yet having bowel movements. he would like to be advanced from full liquid diet yesterday night to more solid diet today. he thinks he has not had enough oral intake in recent days to make bowel movement. no vomiting. no chest pain. no shortness of breath. no dizziness. no lightheadedness. Physical Exam Constitutional: WD/WN, vitals as above + obese Eyes: EOM intact bilaterally ENMT: external ear and nose normal, oropharynx normal Neck: normal visual inspection Respiratory: normal respiratory effort, lungs clear to auscultation Cardiovascular: Rate/Rhythm: regular rate and regular rhythm Gastrointestinal (Abdomen): abdomen is softer on palpation of upper abdomen than lower abdomen, no acute tenderness on palpation, bowel sounds present. Musculoskeletal: Head/Neck/Chest: normocephalic and head atraumatic Neurologic: PERRL, EOMI, accommodation nl, no face palsy, no dysarthria Psychiatric: A+Ox3, euthymic affect Results & Data Vital Signs (Past 12 Hours) Vital Signs Temp Pulse Resp BP BP Pulse Ox 04/26/19 07:15 37.1 C 81 18 121/76 93 04/25/19 23:25 36.9 C 87 18 129/83 90
[2019-04-26] MEDS: SOTALOL HCL 80 MG TAB PO SCH ×2 (08:12→20:48)
[2019-04-26] MEDS: LISINOPRIL 20 MG TAB PO SCH (08:12)
[2019-04-26] MEDS: AMLODIPINE BESYLATE 5 MG TAB PO SCH (08:12)
[2019-04-26] MEDS: SENNA 8.6 MG TAB PO SCH (08:12)
[2019-04-26] MEDS: METOPROLOL SUCC 25MG EXT REL TAB PO SCH (08:12)
[2019-04-26] MEDS: CYANOCOBALAMIN 500 MCG TABLET (VITAMIN B-12) PO SCH (08:12)
[2019-04-26] MEDS: ASPIRIN 81 MG ECTAB PO SCH (08:13)
[2019-04-26] MEDS: POLYETHYLENE (MIRALAX) 17 GM PACK PO PRN (08:18)
[2019-04-26] MEDS: FAMOTIDINE 20 MG in SYRINGE 3 ML IV SCH ×2 (08:19→20:55)
[2019-04-26] MEDS: INSULIN ASPART 100 UNITS/ML 3 ML PEN SC SCH ×4 (08:20→20:52)
[2019-04-26] MEDS: ACETAMINOPHEN 325 MG TAB PO PRN ×2 (12:49→20:49)
[2019-04-26] MEDS ORDERED: FUROSEMIDE 40 MG in SYRINGE 0 ML IV ONE (14:30)
[2019-04-27] MEDS: OXYCODONE HCL IR 5 MG TAB (IMMEDIATE RELEASE) PO PRN (02:03)
[2019-04-27 06:51] LABS: Hematocrit (blood only) 41.9 % (42-52); Hemoglobin 14.3 g/dL (14.0-18.0); Mean Corpuscular Hemoglobin 32.1 pg (25-34); Mean Corpuscular Hgb Conc 34.1 g/dL (32-36); Mean Corpuscular Volume 93.9 fL (80-100); RDW Coefficient of Variation 14.4 % (11.5-14.5); RDW Standard Deviation 49.1 fL (36.4-46.3); Red Blood Count 4.46 M/uL (4.7-6.1); White Blood Count 11.46 K/uL (4.8-10.8)
[2019-04-27 06:55] LABS: Mean Platelet Volume 11.2 fL (7.4-10.4); Platelet Count 83 K/uL (130-400)
[2019-04-27 07:21] LABS: Albumin Level 2.6 gm/dl (3.4-5.0); BUN Creatinine Ratio 19.9 (10-20); Bilirubin Direct 0.5 mg/dl (0-0.2); Calcium 8.3 mg/dl (8.5-10.1); Creatinine Clr Calc Pharmacy 53.6 ml/min; Est GFR (African American) 60.7; Est GFR (Non-African American) 52.4; Potassium 3.6 mmol/L (3.5-5.1)
[2019-04-27 07:24] LABS: Albumin Globulin Ratio 0.8 (0.9-2); Bilirubin,Total 1.8 mg/dl (0.2-1); Globulin 3.3 gm/dl (2.5-4.0); Total Protein 5.9 gm/dl (6.4-8.2)
[2019-04-27 07:27] LABS: Basophils # (auto) 0.01 K/uL (0-0.2); Basophils % (auto) 0.1 %; Eosinophils # (auto) 0.03 K/uL (0-0.5); Eosinophils % (auto) 0.3 %; Immature Granulocytes # (auto) 0.06 K/uL (0.00-0.02); Immature Granulocytes % (auto) 0.5 %; Lymphocytes # (auto) 0.88 K/uL (1.2-3.4); Lymphocytes % (auto) 7.7 %; Monocytes # (auto) 0.95 K/uL (0.11-0.59); Monocytes % (auto) 8.3 %; Neutrophils # (auto) 9.53 K/uL (1.4-6.5); Neutrophils % (auto) 83.1 %
[2019-04-27] MEDS ORDERED: MAGNESIUM HYDROXIDE SUSP 30 ML UDC PO ONE (08:10)
[2019-04-27] MEDS: CYANOCOBALAMIN 500 MCG TABLET (VITAMIN B-12) PO SCH (08:19)
[2019-04-27] MEDS: SOTALOL HCL 80 MG TAB PO SCH (08:19)
[2019-04-27] MEDS: METOPROLOL SUCC 25MG EXT REL TAB PO SCH (08:19)
[2019-04-27] MEDS: AMLODIPINE BESYLATE 5 MG TAB PO SCH (08:19)
[2019-04-27] MEDS: SENNA 8.6 MG TAB PO SCH (08:19)
[2019-04-27] MEDS: ASPIRIN 81 MG ECTAB PO SCH (08:20)
[2019-04-27] MEDS: LISINOPRIL 20 MG TAB PO SCH (08:20)
[2019-04-27] MEDS: INSULIN ASPART 100 UNITS/ML 3 ML PEN SC SCH ×2 (08:23→12:42)
[2019-04-27] MEDS: FAMOTIDINE 20 MG in SYRINGE 3 ML IV SCH ×2 (08:39→09:30)
[2019-04-27] MEDS: ACETAMINOPHEN 325 MG TAB PO PRN (11:41)
--- NOTE | 2019-04-27 15:50 | Hospitalist Progress Note ---
Date of Service April 27, 2019 Assessment & Plan (1) Acute pancreatitis: This is a 78yo M with a PMH of DM II, HTN, HLD, paroxysmal VT, GERD and other medical problems listed below who presents with abdominal pain since early afternoon of 04/23/19 and was found to have acute pancreatitis. CT abdomen 04/23/19 "FINDINGS: Groundglass densities at the lung bases posteriorly favor mild dependent change. No pneumoperitoneum. No pneumatosis. Sclerosis at the femoral heads. This is nonspecific but could be due to degenerative change or early avascular necrosis. No femoral head collapse. No acute fractures. A few scattered punctate calcifications within the pancreas. There is mild to moderate peripancreatic inflammatory change and fluid. Findings are consistent with acute pancreatitis. No loculated fluid collections identified at this time. The pancreas enhances normally. No significant pancreatic necrosis identified. The splenic artery and vein appear patent. The main portal vein is also patent. Normal caliber common bile duct. Cholecystectomy. The liver, spleen, adrenal glands are unremarkable. Bilateral renal hypodense lesions are noted. Dominant lesion within the left kidney measures 8.4 cm. Some of these are subcentimeter in size are technically too small to characterize. However, these statistically favor cysts. No hydronephrosis. Focal aneurysmal dilatation of the celiac artery measuring up to 1.6 cm in diameter. Small fat-containing right inguinal hernia. No retroperitoneal lymphadenopathy. Normal caliber abdominal aorta. No pelvic free fluid. The prostate gland is mildly enlarged. The bladder is unremarkable. Colonic diverticulosis. No evidence for diverticulitis. No bowel wall thickening or obstruction. Normal appendix. IMPRESSION: 1. Above findings consistent with acute pancreatitis. 2. Nonspecific sclerosis of the femoral head. This could be due to degenerative change or developing avascular necrosis. No femoral head collapse. 3. 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 4. Additional findings as described above." -No previous history of pancreatitis. Status post cholecystectomy, no alcohol or tobacco use -Found to have acute pancreatitis on CT abdomen pelvis with elevated admission Lipase 19,854 -patient received IV fluids up to 04/26/19 -Lipase downtrending to 7007 to 3212 to 591 before normalizing on 04/27/19 as 197 -Avoid Victoza, HCTZ as potential contributors -Fasting lipid panel shows very well controlled lipid profiles, atorvastatin was held during acute pancreatitis pain but can be resumed on discharge -Total bilirubin peaked at 2.3 on 04/26/19 and then normalized, appears that indirect bilirubin were somewhat higher and labs did not indicate bile duct obstruction -[facility] Gastronenterology service planning arrange outpatient EUS in 6 to [address] Kwame Disla Patient should call [facility] Address: [address] [place] [address], [place] [address] to confirm appointment time -Discharge to home Patient is advised to take low fat diet Patient should take sennoside daily for regular bowel movements Patient may take acetaminophen 325 mg every 6 hours as needed for mild pain or fever. Patient should avoid taking more than 2000 mg of acetaminophen in 1 day. Tylenol is brand name acetaminophen Patient is advised by gastroenterology service to avoid Victoza and hydrochlorothiazide as they are potential medications that can cause pancreatitis Patient is to take amlodipine 10 mg daily prescription instead of hydrochlorothiazide for blood pressure Follow up appointment with 05/01/2019 11:00 AM Provider Milton Pugh MD [facility] Patient should have repeat CBC including platelet levels, comprehensive metabolic panel including direct/indirect bilirubin, lipase levels when seen by primary care doctor Discharge medications sent electronically to [facility] [address], [place] [address] Leukocytosis -admission WBC 10K then rising to 13K and on AM labs of 04/25/19 is 17K but downtrended and is on 04/27/19 as 11K -no fever to date -Leukocytosis may be reactive stress response to pancreatitis 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 -incidental CT scan finding -outpatient follow up and monitoring Abdominal pain -from pancreatitis -patient received pain control medications during hospital stay -patient also had bowel regimen to help move the stool -04/27/19 abdominal pain improved today and generally resolved after enema which led to bowel movement -daily senna prescription on discharge (2) Paroxysmal ventricular tachycardia: -continue sotalol (3) CKD (chronic kidney disease), stage III: Creatinine 1.56, upper limit of normal (baseline creatinine mid ones) -HCTZ held -Creatinine currently 1.29 (4) Hypertension: -Continue metoprolol, lisinopril -gastroenterology advise to avoid HCTZ because of pancreatitis -continue amlodipine 10 mg daily as substitute Thrombocytopenia -platelets in the stable low 100,000 range and trending to 86K, then 71 K -recent downtrends may be from hemodilution due to IV fluids for pancreatitis -once IV fluids were stopped. follow up platelets on 04/27/19 was 83K (5) Diabetes mellitus, type II: Diabetes mellitus type II with complication of possible drug contribution of Victoza to pancreatitis HbA1c of 7.6 in February 2019 -Hold home agents, including Victoza -gastroenterology advise to avoid Victoza because of pancreatitis -Sliding scale insulin while in-patient and check blood sugar at meal times -Patient should discuss with primary care doctor about alternative to Victoza for diabetes mellitus PT/OT evaluations requested DVT Ppx: SCDs for now to avoid abdominal discomfort from pharmacological injections of anticoagulants Code status: FULL PCP: Keaton [phone] Daughter Meme [phone] Discharge Diagnosis Acute pancreatitis, Leukocytosis , Celiac artery aneurysm, Paroxysmal ventricular tachycardia, Hypertension, CKD (chronic kidney disease), stage III, Diabetes mellitus type II with complication of possible drug contribution of Victoza to pancreatitis, Thrombocytopenia Subjective Patient able to tolerate diet. abdominal pain improved today and generally resolved after enema which led to bowel movement. no acute shortness of breath. no chest pain. no vomiting. no dizziness. no lightheadedness. patient wanted to be discharged after bowel movement and because he is significantly improved. Discussed discharge instructions and follow ups at length Physical Exam Constitutional: WD/WN, vitals as above + obese Eyes: EOM intact bilaterally ENMT: external ear and nose normal, oropharynx normal Neck: normal visual inspection Respiratory: normal respiratory effort, lungs clear to auscultation Cardiovascular: Rate/Rhythm: regular rate and regular rhythm Gastrointestinal (Abdomen): normal bowel sounds, soft, nontender, no hepatosplenomegaly Musculoskeletal: Head/Neck/Chest: normocephalic and head atraumatic Neurologic: PERRL, EOMI, accommodation nl, no face palsy, no dysarthria Psychiatric: A+Ox3, euthymic affect Results & Data Vital Signs (Past 12 Hours) Vital Signs Temp Pulse Resp BP Pulse Ox 04/27/19 07:30 36.7 C 84 16 146/88 H 92
--- NOTE | 2019-04-27 16:15 | Discharge Summary ---
Date of Service April 27, 2019 Admission HPI Per Admitting Provider This is a 78yo M with a PMH of DM II, HTN, HLD, paroxysmal VT, GERD and other medical problems listed below who presents with abdominal pain since early afternoon. [place] normal today until 30 minutes after eating 4 spicy beef sticks and pepper brian cheese. Describes pain as a constant, 10/10 sharp and non- radiating. Had associated nausea and vomiting x 3. Also had a few episodes of diarrhea. Denies fever chills, cough, chest pain, shortness of breath, dysuria or constipation. In ED, pain decreased to 2/10 after pain medication in ED. Has been taking Victoza for approximately 1 year. Only new medications are magnesium and B12. Does not drink alcohol or use tobacco. History of cholecystectomy. Found to have acute pancreatitis on CT abd/pelvis. Lipase 19, 854. Will admit for treatment of acute pancreatitis. Admission Exam Per Admitting Provider Physical Exam: General Appearance: WD/WN, vitals as above, NAD, sitting up in bed, pleasant, conversing easily Head: normocephalic, atraumatic Eyes: normal inspection, PERRL, conjunctivae normal, anicteric sclerae ENT: external ear and nose normal, oropharynx normal Neck: trachea midline, no thyromegaly normal visual inspection Respiratory: Decreased breath sounds, no wheeze, rales, rhonchi. Normal insp/exp effort, no accessory muscle use Cardiovascular: regular rate, rhythm, no murmur, normal peripheral pulses. Vessels: no JVD or carotid bruit Chest: normal inspection of chest Abdomen/GI: normal bowel sounds, soft, TTP in RUQ, mid-epigastrium, voluntarily guarding, no hepatosplenomegaly Extremities/Musculoskelatal: no cyanosis or clubbing, extremities motor strength 5/5 Neurologic: PERRL, EOMI, accommodation nl, no face palsy, no dysarthria CN's II-XI intact bilaterally and moves all extremities Psychiatric: A+Ox3, euthymic affect Skin: no rashes, normal color, warm/dry Principal Diagnosis Acute pancreatitis, Leukocytosis , Celiac artery aneurysm, Paroxysmal ventricular tachycardia, Hypertension, CKD (chronic kidney disease), stage III, Diabetes mellitus type II with complication of possible drug contribution of Victoza to pancreatitis, Thrombocytopenia Discharge Exam Constitutional WD/WN, vitals as above + obese Eyes EOM intact bilaterally ENMT external ear and nose normal, oropharynx normal Neck normal visual inspection Respiratory normal respiratory effort, lungs clear to auscultation Cardiovascular Rate/Rhythm: regular rate and regular rhythm Gastrointestinal (Abdomen) normal bowel sounds, soft, nontender, no hepatosplenomegaly Musculoskeletal Head/Neck/Chest: normocephalic and head atraumatic Neurologic PERRL, EOMI, accommodation nl, no face palsy, no dysarthria Psychiatric A+Ox3, euthymic affect Discharge Data Allergies Allergy/AdvReac Type Severity Reaction Status Date / Time No Known Allergies Allergy Verified 04/23/19 17:34 Consultations 04/23/19 18:22 ED Decision to Admit Stat 04/23/19 19:27 Consult Gastroenterology Routine Ordered Studies 04/23/19 16:28 CT abd pelvis IV con only Stat Hospital Course (1) Acute pancreatitis: This is a 78yo M with a PMH of DM II, HTN, HLD, paroxysmal VT, GERD and other medical problems listed below who presents with abdominal pain since early afternoon of 04/23/19 and was found to have acute pancreatitis. CT abdomen 04/23/19 "FINDINGS: Groundglass densities at the lung bases posteriorly favor mild dependent change. No pneumoperitoneum. No pneumatosis. Sclerosis at the femoral heads. This is nonspecific but could be due to degenerative change or early avascular necrosis. No femoral head collapse. No acute fractures. A few scattered punctate calcifications within the pancreas. There is mild to moderate peripancreatic inflammatory change and fluid. Findings are consistent with acute pancreatitis. No loculated fluid collections identified at this time. The pancreas enhances normally. No significant pancreatic necrosis identified. The splenic artery and vein appear patent. The main portal vein is also patent. Normal caliber common bile duct. Cholecystectomy. The liver, spleen, adrenal glands are unremarkable. Bilateral renal hypodense lesions are noted. Dominant lesion within the left kidney measures 8.4 cm. Some of these are subcentimeter in size are technically too small to characterize. However, these statistically favor cysts. No hydronephrosis. Focal aneurysmal dilatation of the celiac artery measuring up to 1.6 cm in diameter. Small fat-containing right inguinal hernia. No retroperitoneal lymphadenopathy. Normal caliber abdominal aorta. No pelvic free fluid. The prostate gland is mildly enlarged. The bladder is unremarkable. Colonic diverticulosis. No evidence for diverticulitis. No bowel wall thickening or obstruction. Normal appendix. IMPRESSION: 1. Above findings consistent with acute pancreatitis. 2. Nonspecific sclerosis of the femoral head. This could be due to degenerative change or developing avascular necrosis. No femoral head collapse. 3. 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 4. Additional findings as described above." -No previous history of pancreatitis. Status post cholecystectomy, no alcohol or tobacco use -Found to have acute pancreatitis on CT abdomen pelvis with elevated admission Lipase 19,854 -patient received IV fluids up to 04/26/19 -Lipase downtrending to 7007 to 3212 to 591 before normalizing on 04/27/19 as 197 -Avoid Victoza, HCTZ as potential contributors -Fasting lipid panel shows very well controlled lipid profiles, atorvastatin was held during acute pancreatitis pain but can be resumed on discharge -Total bilirubin peaked at 2.3 on 04/26/19 and then normalized, appears that indirect bilirubin were somewhat higher and labs did not indicate bile duct obstruction -[facility]ology service planning arrange outpatient EUS in [address] Kwame Disla Patient should call [facility] Address: [address] [place] [address], [place] [address] to confirm appointment time -Discharge to home Patient is advised to take low fat diet Patient should take sennoside daily for regular bowel movements Patient may take acetaminophen 325 mg every 6 hours as needed for mild pain or fever. Patient should avoid taking more than 2000 mg of acetaminophen in 1 day. Tylenol is brand name acetaminophen Patient is advised by gastroenterology service to avoid Victoza and hydrochlorothiazide as they are potential medications that can cause pancreatitis Patient is to take amlodipine 10 mg daily prescription instead of hydrochlorothiazide for blood pressure Follow up appointment with 05/01/2019 11:00 AM Provider Milton Pugh MD [facility] Patient should have repeat CBC including platelet levels, comprehensive metabolic panel including direct/indirect bilirubin, lipase levels when seen by primary care doctor Discharge medications sent electronically to [facility] [address], [place] [address] Leukocytosis -admission WBC 10K then rising to 13K and on AM labs of 04/25/19 is 17K but downtrended and is on 04/27/19 as 11K -no fever to date -Leukocytosis may be reactive stress response to pancreatitis 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 -incidental CT scan finding -outpatient follow up and monitoring Abdominal pain -from pancreatitis -patient received pain control medications during hospital stay -patient also had bowel regimen to help move the stool -04/27/19 abdominal pain improved today and generally resolved after enema which led to bowel movement -daily senna prescription on discharge (2) Paroxysmal ventricular tachycardia: -continue sotalol (3) CKD (chronic kidney disease), stage III: Creatinine 1.56, upper limit of normal (baseline creatinine mid ones) -HCTZ held -Creatinine currently 1.29 (4) Hypertension: -Continue metoprolol, lisinopril -gastroenterology advise to avoid HCTZ because of pancreatitis -continue amlodipine 10 mg daily as substitute Thrombocytopenia -platelets in the stable low 100,000 range and trending to 86K, then 71 K -recent downtrends may be from hemodilution due to IV fluids for pancreatitis -once IV fluids were stopped. follow up platelets on 04/27/19 was 83K (5) Diabetes mellitus, type II: Diabetes mellitus type II with complication of possible drug contribution of Victoza to pancreatitis HbA1c of 7.6 in February 2019 -Hold home agents, including Victoza -gastroenterology advise to avoid Victoza because of pancreatitis -Sliding scale insulin while in-patient and check blood sugar at meal times -Patient should discuss with primary care doctor about alternative to Victoza for diabetes mellitus PT/OT evaluations requested DVT Ppx: SCDs for now to avoid abdominal discomfort from pharmacological injections of anticoagulants Code status: FULL PCP: [facility] [phone] Daughter Meme [phone] Discharge Diagnosis Acute pancreatitis, Leukocytosis , Celiac artery aneurysm, Paroxysmal ventricular tachycardia, Hypertension, CKD (chronic kidney disease), stage III, Diabetes mellitus type II with complication of possible drug contribution of Victoza to pancreatitis, Thrombocytopenia Total Time Total Time Spent Total Time Spent (In Minutes): 40 minutes Total Time Includes: Examination of the Patient, Discharge Planning, Medication Reconciliation and Communication With Other Providers Discharge Plan Discharge Items Patient Disposition: Home - Self-Care Reason For Visit: ACUTE PANCREATITIS Discharge Diagnosis: Acute pancreatitis, Leukocytosis , Celiac artery aneurysm, Paroxysmal ventricular tachycardia, Hypertension, CKD (chronic kidney disease), stage III, Diabetes mellitus type II with complication of possible drug contribution of Victoza to pancreatitis, Thrombocytopenia Condition on Discharge: Good Activity: Resume your previous activity Non-emergency contact: Primary Care Provider and [employer] Call non-emergency contact if: you have any medication questions Follow-up/Referrals: Milton Pugh MD [Primary Care Provider] - Diet: Low Fat Addtl Attending Provider Instructions: Discharge to home Patient is advised to take low fat diet Patient should take sennoside daily for regular bowel movements Patient may take acetaminophen 325 mg every 6 hours as needed for mild pain or fever. Patient should avoid taking more than 2000 mg of acetaminophen in 1 day. Tylenol is brand name acetaminophen Patient is advised by gastroenterology service to avoid Victoza and hydrochlorothiazide as they are potential medications that can cause pancreatitis Patient is to take amlodipine 10 mg daily prescription instead of hydrochlorothiazide for blood pressure Patient should discuss with primary care doctor about alternative to Victoza for diabetes mellitus Follow up appointment with 05/01/2019 11:00 AM Provider Milton Pugh MD [facility] Patient should have repeat CBC including platelet levels, comprehensive metabolic panel including direct/indirect bilirubin, lipase levels when seen by primary care doctor 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 Kwame Disla [facility] Address: [address] [place] [phone] to confirm appointment time Discharge medications sent electronically [facility] [address] [place] [address] Pending Studies at Discharge: No Stand-Alone Forms: Call Back Authorization, [facility] [employer] Medications and DC Order Prescriptions: New amlodipine 10 mg tablet 10 mg PO QAM 30 Days Qty: 30 RF: 0 sennosides [Senokot] 8.6 mg Tablet 8.6 mg PO QAM 30 Days Qty: 30 RF: 0 acetaminophen 325 mg tablet 325 mg PO Q6H PRN (Reason: fever or pain) 5 Days Qty: 20 RF: 0 Continued metformin [Glucophage] 500 mg tablet 500 mg PO BIDM RF: 0 atorvastatin [Lipitor] 10 mg tablet 10 mg PO QPM RF: 0 sotalol [Betapace] 80 mg tablet 80 mg PO BID RF: 0 lisinopril 20 mg tablet 20 mg PO DAILY RF: 0 cyanocobalamin (vitamin B-12) [Vitamin B-12] 1,000 mcg Tablet 1,000 mcg PO DAILY RF: 0 aspirin [Aspir-Low] 81 mg Tablet,Delayed Release (Dr/Ec) 81 mg PO DAILY RF: 0 allopurinol [Zyloprim] 300 mg tablet 300 mg PO QPM RF: 0 metoprolol succinate [Toprol XL] 25 mg tablet extended release 24 hr 25 mg PO DAILY RF: 0 fluticasone propionate [Flonase Allergy Relief] 50 mcg/actuation [place],Suspension 2 spray INTRANASAL DAILY PRN (Reason: Nasal Congestion) RF: 0 cholecalciferol (vitamin D3) [Vitamin D3] 1,000 unit (25 mcg) Tablet 1,000 unit PO DAILY RF: 0 magnesium oxide 400 mg magnesium Tablet 400 mg PO DAILY RF: 0 Discontinued acetaminophen [Tylenol Extra Strength] 500 mg Tablet 1,000 mg PO QID PRN (Reason: Pain) RF: 0 hydrochlorothiazide 12.5 mg Tablet 12.5 mg PO DAILY RF: 0 Victoza 3-Emeterio 0.6 mg/0.1 mL (18 mg/3 mL) pen injector 1.2 mg subcut DAILY RF: 0 Discharge Orders: Discharge Order (Routine); Ordered 04/27/19 Ordered By: Chente Mcdermott Admission Data Admit Date/Time: 04/23/19 18:52 Attending Provider: Chente Mcdermott Admit Provider: Oracio Judd Primary Care Provider: Milton Pugh Other Providers: Oracio Judd ; Kwame Disla Other Interventions: Discharge Summary Assessment (RN) Last Done: 04/27/19 15:52
== END 2019-04-27 16:37 | disposition home or self-care (01) | DRG 439 ==
LOC: ED 16:16 → SUATTDRO 18:52 → 4W 18:52